=== PATIENT | female | born 1980 ===

== ENCOUNTER 2017-11-02 00:03 | Emergency (ER) | payer OTHER ==
[2017-11-02 00:09] VITALS: BP 131/73; PULSE 84; RESP 16; TEMP 98; O2SAT 98
[2017-11-02 02:02] LABS: RBC URINE 1 /hpf (0-3); URINE BILIRUBIN NEGATIVE (NEGATIVE); URINE BLOOD SMALL (NEGATIVE); URINE COLOR STRAW (YELLOW); URINE GLUCOSE (UA) NEG (Normal); URINE KETONE NEGATIVE (NEGATIVE); URINE LEUKOCYTE ESTERASE NEG Leu/uL (Negative); URINE PROTEIN NEGATIVE (NEGATIVE); URINE UROBILINOGEN 0.2-1.0 mg/dL (0.2-1.0); WBC URINE 1 /hpf (0-5)
[2017-11-02 02:08] LABS: BASO # 0.1 K/uL (0.0-0.2); BASO % 0.7 % (0.0-2.0); EOS % 0.4 % (0.0-4.0); HEMATOCRIT 41.2 % (34.0-47.0); LYMPH # 2.2 K/uL (1.0-4.3); LYMPH % 28.9 % (20.0-40.0); MEAN CELL VOLUME 90.7 fl (81.0-99.0); MEAN CORPUSCULAR HEMOGLOBIN 30.1 pg (27.0-31.0); MEAN CORPUSCULAR HGB CONC 33.2 g/dL (33.0-37.0); MEAN PLATELET VOLUME 8.5 fl (7.2-11.7); MONO # 0.6 K/uL (0.0-0.8); MONO % 8.5 % (0.0-10.0); NEUT # 4.6 K/uL (1.8-7.0); NEUT % 61.5 % (50.0-75.0); NRBC % 0.1 % (0.0-0.0); RED CELL DISTRIBUTION WIDTH 13.2 % (11.5-14.5); WHITE BLOOD COUNT 7.5 K/uL (4.8-10.8)
--- NOTE | 2017-11-02 02:11 | ED PDOC ---
HPI: Abdomen Time Seen by Provider: 11/02/17 00:30 Chief Complaint (Nursing): Female Genitourinary Chief Complaint (Provider): Abdominal pain History Per: Patient History/Exam Limitations: no limitations Onset/Duration Of Symptoms: Days (2) Location Of Pain/Discomfort: LLQ Quality Of Discomfort: Sharp, Stabbing, "Pain" Additional Complaint(s): 37yo female, with no past medical history, presents to ED with complaints of abdominal pain for the past 2 days. patient presents with pain in her left lower quadrant, described as sharp and stabbing in nature, worse with movement and ambulation. Patient denies any nausea, vomiting, diarrhea, fever, urinary symptoms. She states she is at the tail end of her menstrual cycle right now. She has been taking Advil for pain with no relief. No other complaints. Past Medical History Reviewed: Historical Data, Nursing Documentation, Vital Signs Vital Signs: Last Vital Signs Temp 98.0 F 11/02/17 00:06 Pulse 84 11/02/17 00:06 Resp 16 11/02/17 00:06 BP 131/73 11/02/17 00:06 Pulse Ox 98 11/02/17 02:14 - Medical History PMH: No Chronic Diseases - Surgical History Surgical History: No Surg Hx - Family History Family History: States: No Known Family Hx - Home Medications Home Medications: Ambulatory Orders Medication Instructions Recorded Naproxen [Naprosyn] 500 mg PO Q12 #14 tab 11/02/17 - Allergies Allergies/Adverse Reactions: Allergies Allergy/AdvReac Type Severity Reaction Status Date / Time FISH Allergy RASH Verified 11/02/17 00:10 shellfish derived Allergy RASH Verified 11/02/17 00:10 Review of Systems ROS Statement: Except As Marked, All Systems Reviewed And Found Negative Gastrointestinal: Positive for: Abdominal Pain (left lower quadrant). Negative for: Nausea, Vomiting, Diarrhea Genitourinary Female: Negative for: Dysuria, Frequency, Hematuria Physical Exam - Reviewed Nursing Documentation Reviewed: Yes Vital Signs Reviewed: Yes - Physical Exam Appears: Positive for: Non-toxic, Uncomfortable Skin: Positive for: Normal Color Eye Exam: Positive for: Normal appearance Neck: Positive for: Supple Cardiovascular/Chest: Positive for: Regular Rate, Rhythm Respiratory: Positive for: Normal Breath Sounds. Negative for: Respiratory Distress Gastrointestinal/Abdominal: Positive for: Soft, Tenderness (left lower quadrant) Neurologic/Psych: Positive for: Alert, Oriented - Laboratory Results Result Diagrams: 11/02/17 01:45 11/02/17 01:45 - ECG O2 Sat by Pulse Oximetry: 98 (RA) Pulse Ox Interpretation: Normal Medical Decision Making Medical Decision Making: Impression: Left lower quadrant tenderness Plan: -- Labs -- US Transvaginal -- Toradol 30 mg IM Reassess Time: 0330 US Transvaginal IMPRESSION: 1. Small amount of free pelvic fluid. 2. There are 2 simple paraovarian cyst involving the right ovary. 3. There is involuting dominant follicle involving the left ovary. Patient reports feeling better, is stable for discharge home. Diagnosis of ovarian cyst. Scribe Attestation: Documented by Joaquina Browne acting as a scribe for Andrew Hurd MD. Provider Attestation: All medical record entries made by the Scribe were at my direction and personally dictated by me. I have reviewed the chart and agree that the record accurately reflects my personal performance of the history, physical exam, medical decision making, and the department course for this patient. I have also personally directed, reviewed, and agree with the discharge instructions and disposition. Disposition - Clinical Impression Clinical Impression: Ovarian cyst - Disposition [facility] Disposition: Routine/Home Disposition Time: 03:36 Condition: STABLE Prescriptions: Naproxen [Naprosyn] 500 mg PO Q12 #14 tab Instructions: Ovarian Cyst (ED) Forms: [email or web address] (Monegasque) Print Language: PORTUGUESE
[2017-11-02 02:17] LABS: BLOOD UREA NITROGEN 15 mg/dl (7-17); CALCIUM 8.7 mg/dL (8.4-10.2); CARBON DIOXIDE 27 mmol/L (22-30); CHLORIDE 105 mmol/L (98-107); GFR AFRICAN-AMERICAN > 60; GLUCOSE,RANDOM 105 mg/dL (65-105); POTASSIUM 3.8 MMOL/L (3.6-5.0); SODIUM 139 mmol/l (132-148)
--- NOTE | 2017-11-02 02:38 | US ---
EXAM: US Duplex Arterial/Venous of the Pelvis, Complete CLINICAL HISTORY: 37 years old, female; Pain; Other: Llq pain TECHNIQUE: Real-time duplex ultrasound scan of the arterial and venous flow of the pelvis with color Doppler flow and spectral waveform analysis. Endovaginal images are submitted. COMPARISON: No relevant prior studies available. FINDINGS: Uterus/cervix: Retroverted uterus. The uterus measures 7.0 x 5.7 x 5.0 cm. The endometrial stripe measures 6 mm. There is nabothian cyst within the cervix. No myometrial mass. Right ovary: The right ovary measures 2.8 x 2.9 x 1.5 cm. Duplex assessment demonstrates presence of color Doppler signal and spectral Doppler waveform in right ovary. There is right paraovarian cyst measuring 1.8 x 1.3 x 1.2 cm cm and 1.5 x 1.5 x 1.3 cm. No torsion. Left ovary: The left ovary measures 3.3 x 1.8 x 1.8 cm. Duplex assessment demonstrates presence of color Doppler signal and spectral Doppler waveform in left ovary. There is involuting left ovarian dominant follicle. There is echogenic region in the left ovary measuring 3 mm x 3 mm x 3 mm. No torsion. Free fluid: Small amount of free pelvic fluid. IMPRESSION: 1. Small amount of free pelvic fluid. 2. There are 2 simple paraovarian cyst involving the right ovary. 3. There is involuting dominant follicle involving the left ovary.
== END 2017-11-02 03:59 | disposition home or self-care (01) ==
LOC: H.ER 00:03
DX: N83.202 Unspecified ovarian cyst, left side (principal)
CPT/HCPCS: 76830; 80048; 81003; 85025; 87086; 99283; J1885

== ENCOUNTER 2018-11-24 08:38 | Emergency (ER) | payer SELFPAY ==
--- NOTE | 2018-11-24 09:08 | ED PDOC ---
HPI: Female Pain Time Seen by Provider: 11/24/18 09:02 Chief Complaint (Nursing): Female Genitourinary History Per: Patient Onset/Duration Of Symptoms: Days (1) Current Symptoms Are (Timing): Still Present Severity: Mild Pain Scale Rating Of: 0 Additional Complaint(s): Vaginal spotting since last night. Denies abd pain. Pt approx 8 weeks . Abnormal Vaginal Bleeding: Yes Past Medical History Vital Signs: Last Vital Signs Temp 98.1 F 11/24/18 08:45 Pulse 90 11/24/18 08:45 Resp 14 11/24/18 08:45 BP 123/77 11/24/18 08:45 Pulse Ox 99 11/24/18 08:45 - Medical History PMH: No Chronic Diseases - Family History Family History: States: Unknown Family Hx - Home Medications Home Medications: Ambulatory Orders Medication Instructions Recorded Naproxen [Naprosyn] 500 mg PO Q12 #14 tab 11/02/17 - Allergies Allergies/Adverse Reactions: Allergies Allergy/AdvReac Type Severity Reaction Status Date / Time FISH Allergy RASH Verified 11/02/17 00:10 shellfish derived Allergy RASH Verified 11/02/17 00:10 Review of Systems Constitutional: Negative for: Fever Gastrointestinal: Negative for: Abdominal Pain Genitourinary Female: Positive for: Vaginal Bleeding. Negative for: Dysuria, Frequency Physical Exam - Physical Exam Appears: Positive for: Non-toxic, No Acute Distress Skin: Positive for: Normal Color, Warm, DRY Gastrointestinal/Abdominal: Positive for: Bowel Sounds, Soft, Tenderness Pelvic Exam: Positive for: External Exam Normal, Blood (Small amount blood in vault). Negative for: Mass, Tender Adnexa, Tender Uterus - Laboratory Results Result Diagrams: 11/24/18 09:20 11/24/18 09:20 - ECG O2 Sat by Pulse Oximetry: 99 Medical Decision Making Medical Decision Making: Beta HCG 19899, US shows 8 wk IUP but no cardiac activity suggestive of demis. Will repeat Beta HCG 48 hrs to confirm downward trend. Disposition - Clinical Impression Clinical Impression: Threatened - Patient ED Disposition Is Patient to be Admitted: No Counseled Patient/Family Regarding: Studies Performed, Diagnosis, Need For Followup - Disposition Disposition: Routine/Home Disposition Time: 11:38 Condition: FAIR Additional Instructions: Return to ED 48 hrs for repeat Beta HCG Instructions: Threatened Miscarriage Forms: [employer] (Surinamese)
[2018-11-24 09:30] LABS: BASO % 0.6 % (0.0-2.0); EOS % 0.3 % (0.0-4.0); HEMOGLOBIN 14.1 g/dL (12.0-16.0); LYMPH # 1.3 K/uL (1.0-4.3); LYMPH % 24.8 % (20.0-40.0); MEAN CELL VOLUME 90.3 fl (81.0-99.0); MEAN CORPUSCULAR HEMOGLOBIN 29.7 pg (27.0-31.0); MEAN CORPUSCULAR HGB CONC 32.9 g/dL (33.0-37.0); MEAN PLATELET VOLUME 8.1 fl (7.2-11.7); MONO # 0.4 K/uL (0.0-0.8); MONO % 7.8 % (0.0-10.0); NEUT # 3.6 K/uL (1.8-7.0); NEUT % 66.5 % (50.0-75.0); NRBC % 0.1 % (0.0-0.0); RBC 4.74 Mil/uL (3.80-5.20); RED CELL DISTRIBUTION WIDTH 13.1 % (11.5-14.5); WHITE BLOOD COUNT 5.4 K/uL (4.8-10.8)
[2018-11-24 09:39] LABS: ALB/GLOB RATIO 1.2 (1.0-2.1); ALBUMIN 4.3 g/dL (3.5-5.0); ALT/SGPT 33 U/L (9-52); AST/SGOT 26 U/L (14-36); BLOOD UREA NITROGEN 13 mg/dl (7-17); CALCIUM 9.1 mg/dL (8.4-10.2); GFR NON-AFRICAN AMERICAN > 60
--- NOTE | 2018-11-24 11:26 | US ---
Date of service: 11/24/2018 HISTORY: r/o ectopic; last which appears reported 09/17/2018 suggesting 8 week 2 day gestation. COMPARISON: None available. TECHNIQUE: Transvaginal pelvic ultrasound was performed for evaluation of . Transverse and sagittal projections been submitted for interpretation as well as color Doppler imaging. FINDINGS: UTERUS: Measures 10.2 x 7.5 x 6.3 cm. Normal in size and appearance. No fibroid or other mass lesion seen. ENDOMETRIUM: Within the endometrial cavity is a gestational sac as well as pole but no visible yolk sac or amniotic membrane. There is no cardiac activity detected despite multiple attempts CT, suggesting demise. Based on mean crown-rump length measurement of 17.1 mm, the age of the gestation is 8 weeks 2 days. Mean gestational sac diameter 24.2 mm. No suspicious decidual findings to suggest hemorrhage. CERVIX: A few tiny nabothian cysts are identified scattered at the cervix which is otherwise unremarkable appearing. Closed internal os. RIGHT OVARY: Measures 2.4 x 3.0 x 1.7 cm. No solid mass. Normal flow. A simple cyst identified within the central right ovary measure 1.6 x 1.5 x 1.2 cm potentially reflecting corpus luteum cyst. LEFT OVARY: Measures 2.8 x 3.0 x 1.9 cm. No solid mass. Normal flow. FREE FLUID: No significant free fluid noted. OTHER FINDINGS: None. IMPRESSION: 1. A single intrauterine gestation is identified at 8 weeks 2 days by ultrasound biometrics as discussed above. However, no cardiac activity is detected suggesting demise. Serial serum beta HCG analysis is advised and as well as possible follow-up ultrasonography if clinically warranted. 2. Probable corpus luteum cyst right ovary 1.6 cm greatest dimension.
[2018-11-24 12:09] VITALS: BP 120/72; PULSE 82; RESP 16; TEMP 98; O2SAT 100
== END 2018-11-24 12:09 | disposition home or self-care (01) ==
LOC: H.ER 08:38
DX: O20.0 Threatened abortion (principal); Z3A.08 8 weeks gestation of pregnancy

== ENCOUNTER 2018-11-25 15:46 | Emergency (ER) | payer SELFPAY ==
[2018-11-25 15:53] VITALS: RESP 14; O2SAT 100
--- NOTE | 2018-11-25 17:41 | ED PDOC ---
HPI: Female Pain Time Seen by Provider: 11/25/18 16:02 Chief Complaint (Nursing): Female Genitourinary Chief Complaint (Provider): with vaginal bleeding History Per: Patient Additional Complaint(s): 38 y/o female , (1 spontaneous ), currently 8 weeks presents with abdominal cramping that started yesterday. Patient was seen in ED yesterday and was told to come back if she experiences worsening bleeding or pain. Patient denies fever, chills, dysuria, nausea or vomiting. OB: [facility]. Past Medical History Reviewed: Historical Data, Nursing Documentation, Vital Signs Vital Signs: Last Vital Signs Temp 98.5 F 11/25/18 15:49 Pulse 78 11/25/18 15:49 Resp 14 11/25/18 15:49 BP 148/83 11/25/18 15:49 Pulse Ox 100 11/25/18 15:49 - Medical History PMH: No Chronic Diseases - Surgical History Surgical History: No Surg Hx - Family History Family History: States: No Known Family Hx - Living Arrangements Living Arrangements: With Family - Social History Current smoker - smoking cessation education provided: No Alcohol: None Drugs: Denies - Home Medications Home Medications: Ambulatory Orders Medication Instructions Recorded Naproxen [Naprosyn] 500 mg PO Q12 #14 tab 11/02/17 Ibuprofen [Motrin Tab] 800 mg PO Q8 PRN #20 tab 11/25/18 - Allergies Allergies/Adverse Reactions: Allergies Allergy/AdvReac Type Severity Reaction Status Date / Time FISH Allergy RASH Verified 11/02/17 00:10 shellfish derived Allergy RASH Verified 11/02/17 00:10 Review of Systems ROS Statement: Except As Marked, All Systems Reviewed And Found Negative Constitutional: Negative for: Fever Gastrointestinal: Positive for: Abdominal Pain Genitourinary Female: Positive for: Vaginal Bleeding, Pelvic Pain. Negative for: Dysuria Physical Exam - Reviewed Nursing Documentation Reviewed: Yes Vital Signs Reviewed: Yes - Physical Exam Appears: Positive for: Well, Non-toxic, No Acute Distress Skin: Positive for: Normal Color. Negative for: Rash Eye Exam: Positive for: Normal appearance Cardiovascular/Chest: Positive for: Regular Rate, Rhythm Respiratory: Positive for: Normal Breath Sounds. Negative for: Wheezing, Respiratory Distress Gastrointestinal/Abdominal: Positive for: Soft. Negative for: Tenderness, Distended, Guarding, Rebound Back: Negative for: L CVA Tenderness, R CVA Tenderness Extremity: Positive for: Normal ROM Neurologic/Psych: Positive for: Alert, Oriented - Laboratory Results Urine dip results: Positive for: Blood (large). Negative for: Leukocyte Esterase, Nitrate, Ketones, Glucose, Bilirubin, Protein - ECG O2 Sat by Pulse Oximetry: 100 Pulse Ox Interpretation: Normal Medical Decision Making Medical Decision Makin38 y/o female with vaginal bleeding and abdominal pain Previous records reviewed. Patient was seen in ED yesterday and US shows 8 week IUP with no cardiac activity. Beta from yesterday - 40942 Plan: Urine dip Beta quant PO tylenol Beta from today is 6668.60. Patient states Tylenol did not provide adequate pain relief, Motrin dose was given along with rx for same. Case was d/w OB rayon tester Dr. Lopez who agrees that patient is stable for discharge with clinic follow up. Patient was in structed to follow up with clinic in 2-3 days. Patient is aware she can RTED at any time if acutely worse. Disposition - Clinical Impression Clinical Impression: Miscarriage - Patient ED Disposition Is Patient to be Admitted: No Counseled Patient/Family Regarding: Studies Performed, Diagnosis, Need For Followup, Rx Given - Disposition [facility]errals[facility] [Outside] Disposition: Routine/Home Disposition Time: 19:58 Condition: STABLE Additional Instructions: Takeprescription meds as directed as needed for pain. Call clinic first thing in the morning to arrange for follow-up visit. Return to emergency room if acutely worse at any time. Prescriptions: Ibuprofen [Motrin Tab] 800 mg PO Q8 PRN #20 tab PRN Reason: Pain, Moderate (4-7) Instructions: Dealing With Miscarriage, Miscarriage (DC) Forms: [employer] (English) Print Language: LATVIAN
[2018-11-25 21:12] VITALS: BP 137/78; PULSE 72; TEMP 98.2
== END 2018-11-25 20:50 | disposition home or self-care (01) ==
LOC: H.ER 15:46
DX: O03.9 Complete or unspecified spontaneous abortion without complication (principal); Z3A.08 8 weeks gestation of pregnancy